=== PATIENT | male | born 2000 | race Caucasian/White ===

== ENCOUNTER → 2023-09-23 10:03 | Outpatient (REF) | payer OTHER, MEDICARE, SELFPAY | LOC: RAD 10:03 | PROVIDERS: ATTENDING PHYSICIAN Nurse Practitioner Adult Health; FAMILY PHYSICIAN Internal Medicine | DX: K59.00 Constipation, unspecified (principal); R63.4 Abnormal weight loss; R10.9 Unspecified abdominal pain; R63.0 Anorexia | CPT/HCPCS: 74177; Q9967 ==

== ENCOUNTER 2023-09-26 16:17 | Emergency (ER) | payer OTHER, MEDICARE, SELFPAY ==
[2023-09-26 16:20] VITALS: BP 137/75
[2023-09-26 18:00] VITALS: BP 131/74
--- NOTE | 2023-09-26 18:19 | ED.MUSCINJ ---
HPI-Injury
General
Chief Complaint: Extremity Pain (non-traumatic)
Source: patient and family (Mother at bedside)
Exam Limitations: none
Time Seen by Provider: 09/26/23 17:30
Nursing documentation reviewed up to this point in time: agreed with
Travel History
Have you had any contact with someone who has COVID-19?: No
Do you have any symptoms of coronavirus? Fever > 100 degrees, chills, cough, shortness of breath, sore throat, loss of taste or smell, muscle aches, or headache?: No
History of Present Illness-Injury
Initial Injury comments:
22-year-old male states he had right calf pain since yesterday. He states he is felt intermittently short of breath for 2 weeks but he has been having intense feelings of anxiety and feelings of doom for which he is being followed by Psychiatry,
and Neurology.
Past History
Past History
ED Past Medical History: Seizures and Psychiatric (Severe anxiety)
ED Past Surgical History: None
Social History
Tobacco: Non-smoker
Alcohol: None
Drug: None
Living: with family
Employment: Employed
Review of Systems
Review of Systems
Allergies reviewed?: Yes
All Other Systems: ROS reviewed and negative except as documented in HPI and ROS
Constitutional: Denies fever or fatigue
EENT: Denies sore throat
Respiratory: Denies cough or trouble breathing
Cardiac: Reports palpitations (States he wakes up at night with shortness of breath, heart pounding, feeling of doom, has been off work for the past 10 days due to his severe anxiety)
Psychiatric: Reports anxiety and suicidal (Denies feeling suicidal now, he was on Xcopri prescribed by his neurologist, started to have suicidal ideation, he thinks is from the medication so he stopped it 2 days ago as per neurologist)
Phy Exam
Physical Exam
Physical Exam:
GENERAL: No acute distress. A&Ox3.
CONSTITUTIONAL: Afebrile.
EYES: Clear, conjunctivae normal
ENMT: moist mucus membranes, Pharynx nl
RESPIRATORY: Regular respirations, nonlabored, lungs clear.
CARDIOVASCULAR: Regular rate and rhythm, no murmurs, no rubs.
GI: Soft, nontender, normal BS
MUSCULOSKELETAL: No redness, swelling or significant tenderness of the right lower extremity. Moves with ease. Well perfused.
SKIN: Warm, dry, pink
PSYCH: Anxious and affect. Well kept, interactive and appropriate
NEUROLOGIC: Awake, alert and oriented. No focal neurological deficits
Injury Course
Orders/Labs/Results
Orders:
Orders
09/26/23 16:23
US Periph Venous LOWER Ext RT Urgent
Comment:
Reason For Exam: pain and shortness of breath
MDM/Problems Addressed
Differential Diagnosis Includes:
DVT, Anxiety
MDM/Problems Addressed:
22-year-old male states he had right calf pain since yesterday. He states he is felt intermittently short of breath for 2 weeks but he has been having intense feelings of anxiety and feelings of doom for which he is being followed by Psychiatry,
and Neurology.
He is followed by Dr. Zhen Santamaria and Cristy Ferraro for neurology for his history of epilepsy, they are aware of his feelings of doom and suicidality as of 2 days ago and told him to stop the Xcopri. He has a f/u appt on 10/01
Patient has a psychiatrist who follows him at [facility], he is on a wait list for psychologist
Patient has an appointment at [facility] for intake in 3 days
Patient is awaiting insurance information as he intends to make a private psychology appointment with [facility] teacher counselor
09/26/2023 1938 PM
Ultrasound shows no DVT
Patient admits to being extremely anxious, many somatic symptoms most likely related to his anxiety.
He is under care of neurologist, psychiatrist, PCP, management advisor and he has either seen them recently or has an appointment to see them in the near future
Although he admits to intermittent feelings of suicidality, he does not feel suicidal at this point and does not want to hurt himself.
He is stable for discharge to care of his mom.
*Critical Care Note
Total Time (30-74mins, 75-104mins- exclusive of procedures): Not Applicable
ED Attending Note
-
Portions of this chart may have been created with voice recognition software.� Occasional wrong word or��sound alike� substitutions may have occurred due to the inherent limitations of voice recognition software.
Discharge Plan
Departure
Patient Disposition: Home (Routine Discharge)
Date of Disposition: 09/26/23
Time of Disposition: 19:34
Patient with high blood pressure during this ER visit?: No
Condition: Fair
Discharge Problem:
Pain in right lower leg, Anxiety disorder
Instructions: Anxiety, Adult ED, Musculoskeletal Pain
Prescriptions:
No Action
levetiracetam [Keppra] 750 MG tablet
2,000 mg PO DAILY
Patient Comments:
Per patient, '4 x 750mg, 2x 500mg'
buspirone [BuSpar] 15 MG tablet
15 mg PO TIDPRN PRN (Reason: anxiety)
bupropion HCl 300 MG tablet extended release 24 hr
300 mg PO DAILY
quetiapine [Seroquel] 50 MG tablet
150 mg PO TID
Patient Comments:
'25mg in AM, 37.5mg in afternoon, 150mg HS'
Referrals:
Your, Doctors [Other] - Keep scheduled appt
Activity Restrictions/Additional Instructions:
As we discussed, your ultrasound shows no clots.
Keep your appointments with your management advisor, your neurologist, your psychiatrist as scheduled
Interventions
Interventions:
*Risk Screen - Suicide Last Done: 09/26/23 19:30
*General Assessment Last Done: 09/26/23 19:30
*Neglect/Abuse Screening Last Done: 09/26/23 19:30
*Nursing Disposition Last Done: 09/26/23 19:45
ED-Skin Assessment Last Done: 09/26/23 19:26
ED-Peripheral Vascular Assessment Last Done: 09/26/23 19:26
ED-Musculoskeletal Assessment Last Done: 09/26/23 19:26
Discharge Date and Time
Discharge Date/Time: 09/26/23 19:50
[2023-09-26 19:45] VITALS: BP 135/75
== END 2023-09-26 19:50 | disposition home or self-care (01) ==
LOC: EMR 16:17
PROVIDERS: EMERGENCY PHYSICIAN Emergency Medicine; FAMILY PHYSICIAN Nurse Practitioner Adult Health
DX: M79.661 Pain in right lower leg (principal); F41.9 Anxiety disorder, unspecified; G40.909 Epilepsy, unspecified, not intractable, without status epilepticus
CPT/HCPCS: 99284; 93971

== ENCOUNTER → 2024-01-21 13:06 | Outpatient (REF) | payer OTHER, SELFPAY | LOC: HWRCS 13:06 | PROVIDERS: ATTENDING PHYSICIAN Internal Medicine; FAMILY PHYSICIAN Nurse Practitioner Adult Health | DX: R94.31 Abnormal electrocardiogram [ECG] [EKG] (principal) | CPT/HCPCS: 93306 ==

== ENCOUNTER → 2024-04-13 10:28 | Outpatient (REF) | payer OTHER, SELFPAY | LOC: HWRAD 10:28 | PROVIDERS: ATTENDING PHYSICIAN Nurse Practitioner Adult Health | DX: R05.3 Chronic cough (principal); J34.89 Other specified disorders of nose and nasal sinuses; F12.91 Cannabis use, unspecified, in remission; M79.671 Pain in right foot | CPT/HCPCS: 71046; 73630 ==

== ENCOUNTER 2024-11-02 19:35 | Emergency (ER) | payer OTHER, SELFPAY ==
[2024-11-02 19:39] VITALS: BP 138/79
[2024-11-02 20:31] VITALS: BMI 38.4
--- NOTE | 2024-11-02 21:04 | ED.MUSCINJ ---
HPI-Injury
General
Chief Complaint: Skin Surface Trauma
Source: patient
Exam Limitations: none
Time Seen by Provider: 11/02/24 20:22
History of Present Illness-Injury
Is this injury a work related problem?: No
Is pt an associate of [facility]/[place]?: No
Initial Injury comments:
Patient to ED with complaint of pain and swelling to right dorsal foot. States he dropped a mug containing pencils onto his foot last PM. NOw with pain and swelling Notes small scab to foot from puncture by pencil .
Past History
Past History
ED Past Medical History: Seizures and Psychiatric (Severe anxiety)
ED Past Surgical History: None
Social History
Tobacco: Non-smoker
Alcohol: None
Drug: None
Living: with family
Employment: Employed
Review of Systems
Review of Systems
Allergies reviewed?: Yes
All Other Systems: ROS reviewed and negative except as documented in HPI and ROS
Constitutional: Reports no symptoms
Musculoskeletal: Reports joint pain (pain and swelling to right dorsal foot)
Skin: Reports other (puncture wound right dorsal foot)
Neurological: Reports no symptoms
Psychiatric: Reports no symptoms
Musculoskeletal Injury Exam
Musculoskeletal Injury Exam
Right Dorsal Foot:
Pain with Movement?: Moderate
Tender to palpation?: Moderate
Soft tissue swelling?: Mild
External deformity and angulation?: None
Joint effusion?: None
Contusion?: Moderate
Hematoma-local bleeding into tissue?: None
Strain- Sprain- Tear (Connective tissue injury)?: None
Crepitus with movement?: No
Joint instability?: No
Malalignment/deformity?: No
Range of motion: Limited
Distal skin color and temperature: normal-warm & good color
Capillary Refill: normal
Normal distal neurovascular exam?: Yes
Peripheral Pulses: posterior tibial (right): 3+ and dorsalis pedis (right): 3+
Skin Exam
Puncture Wound
Right Dorsal Foot:
Type of puncture wound: other (pencil)
Age of puncture wound: within the last 24 hours
Any active bleeding?: no active bleeding
Distal skin color and temperature: normal-warm & good color
Normal distal neurovascular exam: Yes
Phy Exam
General Physical Exam
General Presentation: well appearing and no apparent distress
General age: appears stated age
General Skin: warm and dry
General Habitus: normal
General Mental: alert
Musculoskeletal Exam
Musculoskeletal Exam: neuro vasc intact
Skin Exam
Skin Exam: normal color, warm/dry and no rash
Psychiatric Exam
Psychiatric Exam: normal mood/affect
Injury Course
Orders/Labs/Results
Orders:
Orders
11/02/24 19:41
Foot, Right 3 View [CR Foot - Right Min 3 Views] Urgent
Comment:
Reason For Exam: heavy cup fell on foot, pain when walking
11/02/24 21:03
Crutches-Treatment ONCE
*Critical Care Note
Total Time (30-74mins, 75-104mins- exclusive of procedures): Not Applicable
Update Note
Update Note:
Xray reviewed. NO evidence of fx or fb. WIll discharge home with crutches to assist with ambulation. Instructed on daily wound care. Given instructions on s/s to return to ED and he is agreeable to plan.
ED Attending Note
-
Portions of this chart may have been created with voice recognition software.� Occasional wrong word or��sound alike� substitutions may have occurred due to the inherent limitations of voice recognition software.
Discharge Plan
Departure
Patient Disposition: Home (Routine Discharge)
Date of Disposition: 11/02/24
Time of Disposition: 21:03
Patient with high blood pressure during this ER visit?: No
Condition: Good
Covid-19: Not Applicable
Discharge Problem:
Contusion of foot
Instructions: How to Use Crutches, Wound Care (DC), Contusion (DC), Ibuprofen, Using Cold for Pain
Prescriptions:
No Action
levetiracetam [Keppra] 750 MG tablet
2,000 mg PO DAILY
Patient Comments:
Per patient, '4 x 750mg, 2x 500mg'
buspirone [BuSpar] 15 MG tablet
15 mg PO TIDPRN PRN (Reason: anxiety)
bupropion HCl 300 MG tablet extended release 24 hr
300 mg PO DAILY
quetiapine [Seroquel] 50 MG tablet
150 mg PO TID
Patient Comments:
'25mg in AM, 37.5mg in afternoon, 150mg HS'
Referrals:
Nella Alcazar CRNP [Family Provider] - Call in 1-3 days for appt
Interventions
Interventions:
*Risk Screen - Suicide Last Done: 11/02/24 19:41
*General Assessment Last Done: 11/02/24 19:41
*Neglect/Abuse Screening Last Done: 11/02/24 19:41
*ED- Fall Risk Assessment Last Done: 11/02/24 20:31
*ED COVID-19 Vaccine History Last Done: 11/02/24 19:41
*Nursing Disposition Last Done: 11/02/24 21:44
ED-Musculoskeletal Assessment Last Done: 11/02/24 20:29
ED-Skin Assessment Last Done: 11/02/24 20:29
Discharge Date and Time
Discharge Date/Time: 11/02/24 21:48
Print Language: BURMESE
== END 2024-11-02 21:48 | disposition home or self-care (01) ==
LOC: EMR 19:35
PROVIDERS: EMERGENCY PHYSICIAN Emergency Medicine; FAMILY PHYSICIAN Nurse Practitioner Adult Health
DX: S90.31XA Contusion of right foot, initial encounter (principal); S91.331A Puncture wound without foreign body, right foot, initial encounter; W20.8XXA Other cause of strike by thrown, projected or falling object, initial encounter; Y93.01 Activity, walking, marching and hiking; F41.9 Anxiety disorder, unspecified; R56.9 Unspecified convulsions; Z91.040 Latex allergy status; Z91.048 Other nonmedicinal substance allergy status
CPT/HCPCS: 99283; 73630

== ENCOUNTER → 2025-04-27 12:00 | Outpatient (REF) | payer OTHER, SELFPAY | LOC: DHSLP 12:00 | PROVIDERS: ATTENDING PHYSICIAN Otolaryngology Otolaryngology/Facial Plastic Surgery; FAMILY PHYSICIAN Nurse Practitioner Adult Health | DX: G47.33 Obstructive sleep apnea (adult) (pediatric) (principal); R06.83 Snoring | CPT/HCPCS: 95800 ==

== ENCOUNTER 2025-06-09 17:12 | Emergency (ER) | payer OTHER, SELFPAY ==
[2025-06-09 17:18] VITALS: BP 144/90
--- NOTE | 2025-06-09 18:58 | ED.MUSCINJ ---
HPI-Injury
General
Chief Complaint: Fall
Source: patient
Exam Limitations: none
Time Seen by Provider: 06/09/25 18:34
History of Present Illness-Injury
Initial Injury comments:
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 He states most of the pain is around the elbow but it radiates from the shoulder to the hand. He hit his head but did not lose
consciousness. Denies any significant headache now or blurry vision. No other complaints at this time
Past History
Past History
ED Past Medical History: Seizures and Psychiatric (Severe anxiety)
ED Past Surgical History: None
Social History
Tobacco: Non-smoker
Alcohol: None
Drug: None
Living: with family
Employment: Employed
Phy Exam
Physical Exam
Physical Exam:
General: Well-appearing male no acute respiratory distress
HEENT: Normal cephalic atraumatic
Musculoskeletal exam: Right elbow swollen tender diffusely without deformity. The wrist is nontender the shoulder is nontender to the touch. He is able to move the fingers of the right hand. He has 2+ radial pulse to the right wrist with good
sensation to the right hand
Skin is intact
Injury Course
Orders/Labs/Results
Orders:
Orders
06/09/25 17:21
CR Clavicle - Right Complete Urgent
Comment:
Reason For Exam: pain
CR Elbow - Right Min 3 Views Urgent
Comment:
Reason For Exam: pain
CR Shoulder, Trauma - Right Urgent
Comment:
Reason For Exam: pain
CR Wrist - Right Min 3 Views Urgent
Comment:
Reason For Exam: pain
Hand, Right 3 View [CR Hand - Right Min 3 Views] Urgent
Comment:
Reason For Exam: pain
06/09/25 18:56
Sling Right-Treatment ONCE
MDM/Problems Addressed
Differential Diagnosis Includes:
Patient with fall down steps with elbow pain. Consider fracture versus dislocation versus sprain. X-rays of the right arm were obtained including the hand to the wrist the elbow the shoulder and clavicle all of which I have personally seen and
reviewed none which show acute fracture of the patient. I suspect underlying elbow sprain. Sling applied will advise follow-up with orthopedics. Stable for discharge
*Pulse Oximetry
SaO2: 100
Oxygen Mode of Delivery: Room air
Patient hypoxic: no
*Critical Care Note
Total Time (30-74mins, 75-104mins- exclusive of procedures): Not Applicable
ED Attending Note
-
Portions of this chart may have been created with voice recognition software.� Occasional wrong word or��sound alike� substitutions may have occurred due to the inherent limitations of voice recognition software.
Discharge Plan
Departure
Patient Disposition: Home (Routine Discharge)
Date of Disposition: 06/09/25
Time of Disposition: 19:01
Patient with high blood pressure during this ER visit?: No
Discharge Problem:
Elbow sprain
Prescriptions:
No Action
levetiracetam [Keppra] 750 MG tablet
2,000 mg PO DAILY
Patient Comments:
Per patient, '4 x 750mg, 2x 500mg'
buspirone [BuSpar] 15 MG tablet
15 mg PO TIDPRN PRN (Reason: anxiety)
bupropion HCl 300 MG tablet extended release 24 hr
300 mg PO DAILY
quetiapine [Seroquel] 50 MG tablet
150 mg PO TID
Patient Comments:
'25mg in AM, 37.5mg in afternoon, 150mg HS'
Referrals:
Kevyn Johnson MD [Active, Orthopedics]
UNKNOWN - PT DOES,NOT KNOW [Unknown Provider]
Stand Alone Forms: Return to Work
Activity Restrictions/Additional Instructions:
Use ibuprofen and Tylenol for pain. Keep sling on for comfort. Follow-up with orthopedics for further evaluation
Interventions
Interventions:
*Risk Screen - Suicide Last Done: 06/09/25 17:18
*Neglect/Abuse Screening Last Done: 06/09/25 17:18
Discharge Date and Time
Print Language: UGANDAN
== END 2025-06-09 19:30 | disposition home or self-care (01) ==
LOC: EMR 17:12
PROVIDERS: EMERGENCY PHYSICIAN Emergency Medicine; FAMILY PHYSICIAN Nurse Practitioner Adult Health
DX: S53.401A Unspecified sprain of right elbow, initial encounter (principal); W10.9XXA Fall (on) (from) unspecified stairs and steps, initial encounter; F41.9 Anxiety disorder, unspecified
CPT/HCPCS: 99283; 73000; 73030; 73080; 73110; 73130

== ENCOUNTER → 2025-06-15 11:26 | Outpatient (REF) | payer OTHER, SELFPAY | LOC: DHSLP 11:26 | PROVIDERS: ATTENDING PHYSICIAN Otolaryngology; FAMILY PHYSICIAN Nurse Practitioner Adult Health | DX: G47.19 Other hypersomnia (principal); R06.83 Snoring | CPT/HCPCS: 95810 ==